=== PATIENT | female | born 1965 | race Caucasian/White ===

== ENCOUNTER → 2017-11-13 | Outpatient (CLI) | payer BC | LOC: RAD 15:15 → MAMMO 15:15 | DX: Z12.31 Encounter for screening mammogram for malignant neoplasm of breast (principal) | CPT/HCPCS: G0202 ==

== ENCOUNTER → 2018-12-04 | Outpatient (CLI) | payer BC | LOC: MAMMO 11-14 10:00 | DX: Z12.31 Encounter for screening mammogram for malignant neoplasm of breast (principal) ==

== ENCOUNTER → 2020-01-21 | Outpatient (CLI) | payer BC | LOC: MAMMO 15:53 | DX: Z12.31 Encounter for screening mammogram for malignant neoplasm of breast (principal) ==

== ENCOUNTER → 2024-05-21 | Outpatient (CLI) | payer BC | LOC: MAMMO 13:17 | DX: Z12.31 Encounter for screening mammogram for malignant neoplasm of breast (principal) ==